=== PATIENT | female | born 1975 | race Caucasian/White ===

== ENCOUNTER 2019-03-16 09:09 | Outpatient (CLI) | payer OTHER, SELFPAY ==
--- NOTE | ~2019-03-16 | XR_ITS ---
XR_[id number]_CR DATE: 03/16/2019 10:01 INDICATION: Left neck pain, left arm numbness. No injury. TECHNIQUE: AP, open-mouth, lateral views COMPARISON: None FINDINGS: There is straightening of the cervical spine. C1 and C2 are normally aligned and the odontoid process is intact. No fracture or dislocation, locked facet or prevertebral soft tissue swelling is evident. The cervical interspaces are relatively well preserved. There is minimal posterior spurring at C4-5 a nd anteroinferior spurring at the C6 vertebral body. IMPRESSION: Straightening Mild degenerative change Reviewed, dictated and finalized at Location A. Reviewed, dictated and finalized at location B. STIGATOR UTILITY BILL COMPLAINTS
--- NOTE | ~2019-03-16 | MM_ITS ---
EXAMINATION: MM screening denzel BI w sandhya HISTORY: Screening mammogram TECHNIQUE: Craniocaudal and mediolateral oblique 3-D tomosynthesis images were obtained and synthetic 2-D images were generated. CAD analysis was submitted and interpreted. COMPARISON: None, baseline BREAST PARENCHYMAL COMPOSITION: There are scattered areas of fibroglandular density. FINDINGS: RIGHT BREAST: There is no evidence of suspicious mass, calcification, or architectural distortion to suggest malignancy. LEFT BREAST: There is possible architectural distortion in the posterior third of the outer breast be st appreciated 6.6 cm from the nipple on the craniocaudal view.. IMPRESSION: 1. Possible left breast architectural distortion. 2. Additional mammographic views and possible breast ultrasound are recommended to evaluate for malig rom and establish a baseline given that this is the first mammographic examination. BI-RADS Category 0: Incomplete: Needs additional imaging evaluation. Reviewed, dictated and finalized at location A. ER UP IMPRESSION: 1. Possible left breast architectural distortion. 2. Additional mammographic views and possible breast ultrasound are recommended to evaluate for malignancy and establish a baseline given that this is the fir st mammographic examination. BI-RADS Category 0: Incomplete: Needs additional imaging evaluation.
== END 2019-03-16 09:10 | disposition home or self-care (01) ==
PROVIDERS: PCP Family Medicine; Visit Provider Family Medicine
DX: Z12.31 Encounter for screening mammogram for malignant neoplasm of breast (principal); M54.12 Radiculopathy, cervical region; R92.8 Other abnormal and inconclusive findings on diagnostic imaging of breast; M50.30 Other cervical disc degeneration, unspecified cervical region
CPT/HCPCS: 72040; 77063; 77067

== ENCOUNTER 2019-04-13 11:19 | Outpatient (CLI) | payer OTHER, SELFPAY ==
--- NOTE | ~2019-04-13 | MMUS_ITS ---
EXAMINATION: MM diagnostic mammo unilat LT, US breast LT limited HISTORY: Follow-up left breast asymmetry TECHNIQUE: Additional 3-D tomosynthesis images of the left breast were performed and synthetic 2-D im ages were generated. CAD analysis was submitted and interpreted. High resolution left breast ultrasou nd was performed. COMPARISON: 03/16/2019 FINDINGS: MAMMOGRAPHIC FINDINGS: Breast composed of scattered areas of fibroglandular density. There are no suspicious masses, calcifi cations or architectural distortion of the left breast. ULTRASOUND: At 12:00, 5 cm from the nipple, there is an oval circumscribed hypoechoic mass with central echogenic ity measuring 5 x 4 x 2 mm. No internal vascularity or posterior shadowing. There are mildly prominen t ducts at the 4:00 position near the nipple. IMPRESSION: 1. Probable benign 5 mm oval hypoechoic mass of the left breast at 12:00, 5 cm from the nipple. 2. Recommend 6 month follow-up left breast ultrasound. BI-RADS category 3, probably benign findings. Reviewed, dictated and finalized at location A. EL TRAILER MECHANIC IMPRESSION: 1. Probable benign 5 mm oval hypoechoic mass of the left breast at 12:00, 5 cm from the nipple. 2. Recommend 6 month follow-up left breast ultrasound. BI-RADS category 3, probably benign findings.
== END 2019-04-13 11:20 | disposition home or self-care (01) ==
LOC: ANHIMG 11:21
PROVIDERS: PCP Family Medicine; Visit Provider Family Medicine
DX: R92.8 Other abnormal and inconclusive findings on diagnostic imaging of breast (principal)
CPT/HCPCS: 76642; 77065

== ENCOUNTER 2020-05-16 13:19 | Outpatient (CLI) | payer OTHER, SELFPAY ==
--- NOTE | ~2020-05-16 | MMUS_ITS ---
EXAMINATION: MM diagnostic denzel BI w sandhya, US breast LT limited HISTORY: Left breast follow-up ultrasound from 04/13/2019 limited left breast ultrasound examination. B ilateral screening. TECHNIQUE: Bilateral full field ML, MLO and craniocaudal and additional right spot ML and MLO 3-D luis carlos osynthesis images were performed and synthetic 2-D images were generated. CAD analysis was submitted and interpreted. Bilateral rotated lateral cc views. High resolution targeted left 12:00 follow-up ul trasound was performed. COMPARISON: 04/13/2019 diagnostic left mammogram and limited left breast ultrasound 03/16/2019 bilateral digital screening mammogram BREAST PARENCHYMAL COMPOSITION: The breasts are heterogeneously dense, which may obscure small masses . FINDINGS: MAMMOGRAPHIC FINDINGS: No reproducible mass or architectural distortion, malignant L., Skin thickening or retraction of eith er breast is evident. ULTRASOUND: There is no evidence of focal abnormal solid or cystic lesion in the vicinity of the prior abnormalit y at 12:00 5 cm from the nipple. IMPRESSION: 1. No mammographic evidence of malignancy 2. Routine annual mammographic screening is recommended. BI-RADS Category 1: Negative Reviewed, dictated and finalized at location A. IMPRESSION: 1. No mammographic evidence of malignancy 2. Routine annual mammographic screening is recommended. BI-RADS Category 1: Negative
== END 2020-05-16 13:20 | disposition home or self-care (01) ==
PROVIDERS: PCP Family Medicine; Visit Provider Family Medicine
DX: N63.20 Unspecified lump in the left breast, unspecified quadrant (principal)
CPT/HCPCS: 76642; 77062; 77066; G0279

== ENCOUNTER 2020-05-23 09:29 | Outpatient (CLI) | payer OTHER, SELFPAY ==
[2020-05-23 10:05] LABS: Basophils Percent Auto 0.5 % (0.2-1.2); Eosinophils Absolute Auto 0.1 K/mm3 (0-0.3); Eosinophils Percent Auto 1.5 % (0-4.4); Hematocrit 39.3 % (37.0-47.0); Hemoglobin 12.7 g/dL (12.0-15.0); Immature Granulocyte Absolute 0.04 K/mm3 (0.00-0.031); Immature Granulocyte Percent A 0.5 % (0-0.5); Lymphocytes Absolute Auto 2.07 K/mm3 (0.9-3.2); Mean Corpuscular HGB Conc 32.3 g/dl (32-36); Mean Corpuscular Hemoglobin 31.6 pg (26-34); Mean Corpuscular Volume 97.8 fl (80-100); Mean Platelet Volume 10.4 fl (7.4-10.4); Monocytes Absolute Auto 0.8 K/mm3 (0.1-0.6); Monocytes Percent Auto 9.6 % (2.6-8.5); Neutrophils Absolute Auto 5.2 K/mm3 (1.3-6.7); Neutrophils Percent Auto 62.9 % (45.5-73.1); Platelet Count Result 278 k/mm3 (150-375); Red Blood Count 4.02 M/mm3 (4.2-5.4); Red Cell Distribution Width 12.5 % (11.5-14.5); White Blood Count 8.3 K/mm3 (4.5-10.0)
[2020-05-23 10:19] LABS: Alanine Aminotransferase 16 U/L (4-35); Albumin Level 4.3 g/dL (3.5-5.1); Alkaline Phosphatase 42 U/L (38-126); Anion Gap 6 mmol/L (8-16); Aspartate Amino Transferase 23 U/L (14-36); Bilirubin,Total 0.4 mg/dL (0.2-1.3); Blood Urea Nitrogen 17 mg/dL (7-17); CRP < 0.5 mg/dL (<1.0); Calcium 9.1 mg/dL (8.4-10.2); Carbon Dioxide 27 mmol/L (22-30); Chloride 107 mmol/L (98-107); Estimated Glomerular Filt Rate 60; Glucose 83 mg/dL (65-105); Potassium 4.3 mmol/L (3.4-5.0); Sodium 140 mmol/L (137-145)
[2020-05-23 10:42] LABS: Erythrocyte Sedimentation Rate 11 mm/hr (0-20)
[2020-05-26 07:42] LABS: Red Blood Cell Folate 477 ng/mL RBC (>280)
[2020-05-29 09:58] LABS: Arsenic, Blood <3 mcg/L (<23); Lead, Blood <1 mcg/dL (<5); Mercury, Blood <4 mcg/L (<=10)
[2020-05-29 10:01] LABS: Collection Sample Blood
[2020-05-29 11:35] LABS: ANA Cascade Screen Positive (Negative)
[2020-05-29 13:35] LABS: Chromatin (Nucleosomal) Ab 1.5; RNP Antibody <1.0; Sm Antibody <1.0; Sm/RNP Antibody <1.0
== END 2020-05-23 09:30 | disposition home or self-care (01) ==
PROVIDERS: PCP Family Medicine; Visit Provider Physician Assistant
DX: R19.7 Diarrhea, unspecified (principal); R43.2 Parageusia
CPT/HCPCS: 36415; 80053; 82175; 82607; 82747; 83655; 83825; 84443; 85025; 85652; 86038; 86140; 87045; 87046; 87177; 87209; 87269; 87427; 87493; 89055

== ENCOUNTER 2020-12-19 17:00 | Outpatient (CLI) | payer OTHER, SELFPAY ==
--- NOTE | ~2020-12-19 | MR_ITS ---
EXAMINATION: MR cervical spine wo con DATE: 12/19/2020 17:43 INDICATION: Cervical radiculopathy. TECHNIQUE: Magnetic resonance imaging (MRI) of the cervical spine was performed without intravenous c ontrast. Sequences included sagittal T2-weighted FSE, sagittal T2-weighted FS FSE, sagittal T1-weight ed FSE, axial MERGE, and axial T2-weighted FSE. COMPARISON: Cervical spine radiographs 03/16/2019 FINDINGS: There is 3 degrees dextrocurvature of cervical spine. There is mild kyphosis of cervical sp ine. Vertebral body heights are normal. There is mildly decreased disc height at C5-C6. The spinal co rd signal intensity is normal. The following disc levels are specifically discussed: C2-C3: The disc does not extend beyond the endplate margin. There is no uncovertebral joint osteoarth ritis. There is no facet joint osteoarthritis. There is no neural foraminal stenosis. There is no bronson tral canal stenosis. C3-C4: The disc does not extend beyond the endplate margin. There is mild right uncovertebral joint o steoarthritis. There is no facet joint osteoarthritis. There is no neural foraminal stenosis. There i s no central canal stenosis. C4-C5: There is a right central and right foraminal zone extrusion. There is mild bilateral uncoverte bral joint osteoarthritis. There is no facet joint osteoarthritis. There is moderate right and mild l eft neural foraminal stenosis. There is mild central canal stenosis. C5-C6: There is a central extrusion. There is mild right and severe left uncovertebral joint osteoart hritis. There is mild left facet joint osteoarthritis. There is mild right and severe left neural for aminal stenosis. There is moderate central canal stenosis with ventral and dorsal indentation of the spinal cord. C6-C7: The disc is bulging. There is mild bilateral uncovertebral joint osteoarthritis. There is mode rate left facet joint osteoarthritis. There is no neural foraminal stenosis. There is mild central ca nal stenosis. C7-T1: The disc does not extend beyond the endplate margin. There is no uncovertebral joint osteoarth ritis. There is mild bilateral facet joint osteoarthritis. There is mild left neural foraminal stenos is. There is no central canal stenosis. IMPRESSION: 1. Moderate cervical spondylosis. Reviewed, dictated and finalized at location A. ING MACHINE SET UP OPERATOR
== END 2020-12-19 17:01 | disposition home or self-care (01) ==
LOC: ANHIMG 17:04
PROVIDERS: PCP Family Medicine; Visit Provider Physician Assistant Medical
DX: M54.12 Radiculopathy, cervical region (principal); M47.812 Spondylosis without myelopathy or radiculopathy, cervical region
CPT/HCPCS: 72141

== ENCOUNTER 2021-04-14 12:39 | Outpatient (CLI) | payer OTHER, SELFPAY ==
--- NOTE | ~2021-04-14 | US_ITS ---
EXAMINATION: US pelvic complete EXAM DATE: 04/14/2021 13:04 INDICATION: N85.2 - Hypertrophy of uterus. TECHNIQUE: Pelvic transabdominal sonogram was performed. There are multiple grayscale and Doppler im ages available for interpretation. There is no prior study for comparison. FINDINGS: Uterus measures 8.5 x 4.4 x 5.3 cm, and is morphologically normal. Endometrial stripe shannan sures 11 mm, within normal limits. There is no free pelvic fluid. Right adnexa: The ovary measures 3.4 x 2.3 x 2.1 cm and is morphologically normal. Ovarian vascular f low confirmed. Left adnexa: The ovary measures 2.6 x 2.3 x 2.8 cm and is morphologically normal. Ovarian vascular fl ow confirmed. IMPRESSION: 1. Unremarkable pelvic ultrasound exam. Reviewed, dictated and finalized at location A. TROCARDIOGRAPH TECHNICIAN
== END 2021-04-14 12:40 | disposition home or self-care (01) ==
LOC: ANHIMG 12:44
PROVIDERS: PCP Family Medicine; Visit Provider Family Medicine
DX: N85.2 Hypertrophy of uterus (principal)
CPT/HCPCS: 76856

== ENCOUNTER 2021-05-01 15:52 | Outpatient (CLI) | payer OTHER, SELFPAY ==
--- NOTE | ~2021-05-01 | MM_ITS ---
EXAMINATION: MM screening denzel BI w sandhya HISTORY: Screening mammogram TECHNIQUE: Craniocaudal and mediolateral oblique 3-D tomosynthesis images were obtained and synthetic 2-D images were generated. CAD analysis was submitted and interpreted. COMPARISON: diagnostic bilateral mammogram and limited left breast ultrasound 04/13/1999 1220 diagnostic left mammogram and limited left breast ultrasound 03/16/2019 bilateral screening mammogram BREAST PARENCHYMAL COMPOSITION: There are scattered areas of fibroglandular density. FINDINGS: There is no evidence of suspicious mass, calcification, or architectural distortion to sugg est malignancy in either breast. There has been no suspicious interval change. IMPRESSION: 1. No mammographic evidence of malignancy. 2. Recommend routine screening mammography in one year. BI-RADS Category 1: Negative Reviewed, dictated and finalized at location A.
== END 2021-05-01 15:53 | disposition home or self-care (01) ==
PROVIDERS: PCP Family Medicine; Visit Provider Family Medicine
DX: Z12.31 Encounter for screening mammogram for malignant neoplasm of breast (principal)
CPT/HCPCS: 77063; 77067

== ENCOUNTER 2021-06-16 08:28 | Outpatient (CLI) | payer OTHER, SELFPAY ==
--- NOTE | ~2021-06-16 | US_ITS ---
EXAMINATION: US pelvic complete w TV DATE: 06/16/2021 09:43 INDICATION: Pelvic and perineal pain TECHNIQUE: Multiple transabdominal and endovaginal sonographic images of the pelvis were obtained. COMPARISON: 04/14/2021 FINDINGS: The uterus measures 8.8 x 6.7 x 5.3 cm. The endometrial complex measures 3 mm. Nabothian cy sts are noted in the cervix. The right ovary measures 4.3 x 3.9 x 3.8 cm and contains a 3.9 cm cyst. The left ovary measures 2.2 x 1.7 x 1.3 cm. There is normal vascular flow in the ovaries. There is no free fluid in the pelvis. IMPRESSION: 1. No sonographic correlate for the patient's symptoms. Reviewed, dictated and finalized at location A.
== END 2021-06-16 08:29 | disposition home or self-care (01) ==
LOC: ANHIMG 08:32
PROVIDERS: PCP Family Medicine; Visit Provider Family Medicine
DX: R10.2 Pelvic and perineal pain (principal)
CPT/HCPCS: 76830; 76856

== ENCOUNTER 2021-06-20 01:24 | Day surgery (SDC) | payer OTHER, SELFPAY ==
[2021-06-05 13:32] VITALS: BMI 32.8
--- NOTE | 2021-06-19 14:16 | PM.HPGS ---
History of Present Illness History of Present Illness Consent: Risks, benefits, and alternatives have been discussed and questions answered. Patient agrees to proceed with procedure. Chief complaint: GERD, Neoplasm screening Narrative: Mukul Lynch is a 45 year old female with hx of GERD, gastric sleeve (2016), and tubal ligation is referred by Dr. Romero for evaluation of GERD. She reports 22 year hx of reflux symptom that she treated off and on with tums or OTC PPI as needed but for past few months symptoms are progressively getting worse. Now with daily reflux and burning sensation in midchest and feels liquid comes up esophagus causes her to cough. Reflux is worse on an empty stomach and at night. Rare incident of vomiting during the night. for the last month she has taken OTC omeprazole with some improvement in symptoms. Prior to that she took it 2-3 days a week. She takes ibuprofen 1-2 times a month for neck pain. she is due for colon cancer screening. Review of Systems Review of Systems: All systems reviewed & are unremarkable except as noted in HPI and below PMFSH Past Medical History Medical History Encounter for screening colonoscopy Surgical History Surgical History H/O tubal ligation Status post panniculectomy Family History Family History Mother Hypertension Social History Social History Smoking status: Never smoker Second hand tobacco smoke exposure: No Alcohol intake: current Alcohol use details: drinks on the weekends Substance use: never Substance use type: does not use Living arrangements: with family Gender identity (if verbalized by the patient): Female Spiritual care concerns: No Agree to blood products: Yes Meds Home Medications and Allergies Home Medications Medication Instructions Recorded Confirmed Type phentermine 37.5 mg tablet 18.75 mg PO DAILY #30 tablet 01/20/21 06/05/21 Rx omeprazole 40 mg capsule,delayed 20 mg PO DAILY cap 05/15/21 06/05/21 History release medroxyprogesterone 10 mg tablet 10 mg PO DAILY #30 tablet 06/02/21 06/05/21 Rx topiramate 25 mg tablet See Rx Instructions .ROUTE 06/17/21 Rx .COMPLEX #60 tablet Allergies Allergy/AdvReac Type Severity Reaction Status Date / Time No Known Allergies Allergy Verified 06/20/21 08:14 Exam Const: General: alert Orientation/consciousness: patient oriented x3 Resp: Auscultation: clear to auscultation bilaterally Cardio: Rhythm: regular rhythm GI: GI Palp: Yes Soft to palpation and No Tenderness to palpation present (GI) Neuro: General: patient oriented x3 Assessment and Plan Assessment and plan (1) GERD (gastroesophageal reflux disease): Code(s): K21.9 - Gastro-esophageal reflux disease without esophagitis Status: Acute Assessment and Plan: EGD with possible biopsy or dilatation or cautery. (2) Encounter for screening colonoscopy: Code(s): Z12.11 - Encounter for screening for malignant neoplasm of colon Status: Acute Assessment and Plan: Colonoscopy with possible biopsy or polypectomy or cautery or injection of substances.
[2021-06-20 08:14] VITALS: BP 124/85; PULSE 72; RESP 16; TEMP 36.2; O2SAT 100
[2021-06-20 08:16] VITALS: BMI 32.5
[2021-06-20] MEDS: LACTATED RINGERS 1,000 ML 150 ML IV CONT (08:23)
--- NOTE | 2021-06-20 08:33 | P.PNAN_ITS ---
Anes - Initial Pre Proc Eval Procedure: Operation Date: 06/20/21 09:15 Proposed Procedures p Esophagogastroduodenoscopy & Screening Colonoscopy - Pasha Sal MD Date/Time: 06/20/21 08:33 Surgeon: Pasha Sal MD Pre Op Diagnosis: GERD, Neoplasm screening Patient Data Age: 45 Gender: F Height: 1.6 m Weight: 83.5 kg Last Vital Signs Temp 36.2 C L 06/20/21 08:14 Pulse 72 06/20/21 08:14 Resp 16 06/20/21 08:14 BP 124/85 06/20/21 08:14 Pulse Ox 100 06/20/21 08:14 Allergies Allergy/AdvReac Type Severity Reaction Status Date / Time No Known Allergies Allergy Verified 06/20/21 08:14 Home Medications Medication Instructions Recorded Confirmed Type phentermine 37.5 mg tablet 18.75 mg PO DAILY #30 tablet 01/20/21 06/05/21 Rx omeprazole 40 mg capsule,delayed 20 mg PO DAILY cap 05/15/21 06/05/21 History release medroxyprogesterone 10 mg tablet 10 mg PO DAILY #30 tablet 06/02/21 06/05/21 Rx topiramate 25 mg tablet See Rx Instructions .ROUTE 06/17/21 Rx .COMPLEX #60 tablet Patient hx anesthesia problems: none Family hx anesthesia problems: none Results Review: All pre-operative results and documents have been reviewed as part of the pre-operative evaluation. [facility] Past Medical History Medical History Encounter for screening colonoscopy Surgical History Surgical History H/O tubal ligation Status post panniculectomy Family History Family History Mother Hypertension Social History Social History Smoking status: Never smoker Second hand tobacco smoke exposure: No Alcohol intake: current Alcohol use details: drinks on the weekends Substance use: never Substance use type: does not use Living arrangements: with family Gender identity (if verbalized by the patient): Female Spiritual care concerns: No Agree to blood products: Yes Anes - Eval Final PreProcedure Day of Procedure 06/20/21 08:33 Patient weight: obese Heart: regular rate and rhythm Lungs: clear to auscultation Airway: Mallampati scale class II Neurological: alert and oriented Last oral intake: >/= 8 hours ASA classification: II Emergent: no Anesthetic plan: proceed Anesthesia type and monitoring: general GIVS and standard monitoring Results Review: All pre-operative results and documents have been reviewed as part of the pre-operative evaluation. Informed Consent: The patient's anesthetic plan and its attendant risks and benefits were discussed with the patient/family/POA. Questions were solicited and answers provided to the satisfaction of the patient/family/POA.
--- NOTE | 2021-06-20 09:21 | SUR.OPER ---
EGD: [id number] COLON: [id number]
[2021-06-20 09:51] VITALS: BP 135/77; PULSE 72; RESP 16; O2SAT 99
[2021-06-20 10:11] VITALS: BP 133/88; PULSE 64; RESP 16; O2SAT 100
== END 2021-06-20 10:17 | disposition home or self-care (01) ==
PROVIDERS: PCP Family Medicine; Visit Provider Internal Medicine Gastroenterology
PROC: 0DJ08ZZ Inspection of Upper Intestinal Tract, Via Natural or Artificial Opening Endoscopic (ICD-10-PCS; CPT 43235; principal; 2021-06-20 09:15)
DX: Z12.11 Encounter for screening for malignant neoplasm of colon (principal); K21.00 Gastro-esophageal reflux disease with esophagitis, without bleeding; K44.9 Diaphragmatic hernia without obstruction or gangrene; Z98.84 Bariatric surgery status; E66.9 Obesity, unspecified; Z68.32 Body mass index [BMI] 32.0-32.9, adult
CPT/HCPCS: 43239; 45378; 87081; 88305; J2704; J7120

== ENCOUNTER 2022-01-11 10:21 | Emergency (ER) | payer OTHER, SELFPAY ==
--- NOTE | 2022-01-11 10:27 | ED.URI ---
HPI - URI/Sore Throat General Chief Complaint: Upper Respiratory Infection Stated Complaint: upper respiratory sore throat Time Seen by Provider: 01/11/22 10:27 Source: patient and RN notes reviewed History of Present Illness HPI Narrative: patient is a 46-year-old female who presents to the Urgent Care with complaints of sore throat, swollen glands and drainage. Patient states that it started approximately 2 and half days ago. Denies any fevers. States that she had an exposure to someone's mother who had influenza. Patient has been taking ibuprofen. No other acute complaints. No acute distress noted. Patient aware of the plan of care. Some parts of this dictation were generated by voice recognition software and may contain typographical and/or grammatical inaccuracies. Related Data Allergies Allergy/AdvReac Type Severity Reaction Status Date / Time No Known Allergies Allergy Verified 06/20/21 08:14 Review of Systems Review of Systems: CONSTITUTIONAL: Denies fever, chills, or sweats. EYES: Denies visual changes, redness, or discharge. ENT: Reports of drainage, sore throat and swollen glands CARDIOVASCULAR: Denies chest pain, palpitations, or edema. RESPIRATORY: Denies cough or dyspnea. GASTROINTESTINAL: Denies abdominal pain, nausea, vomiting, or diarrhea. GENITOURINARY: Denies dysuria or hematuria. SKIN: Denies rash or itching. MUSCULOSKELETAL: Denies back pain, joint pain, or myalgia. NEUROLOGIC: Denies headache, numbness, or weakness. All other systems reviewed are negative, except as documented in HPI. [facility] Past Medical History Medical History Encounter for screening colonoscopy Surgical History Surgical History H/O tubal ligation Status post panniculectomy Family History Family History Mother Hypertension Social History Social History Smoking status: Never smoker Second hand tobacco smoke exposure: No Alcohol intake: current Alcohol use details: drinks on the weekends Substance use: never Substance use type: does not use Gender identity (if verbalized by the patient): Female Spiritual care concerns: No Agree to blood products: Yes Comments At the time of my signature, I reviewed and agree with the nursing past medical, surgical, social, and family history. There is no relevant family history pertinent to the patient complaint. Exam Narrative: GENERAL: This is a well-nourished, well-developed patient, in no apparent distress. HEAD: normocephalic, atraumatic. EYES: PERRL. Sclera clear/white. Vision is grossly intact. EARS: External ears normal, auditory canals clear and without drainage, TMs normal without perforation. Hearing grossly intact. NOSE: External nose normal with no obvious nasal discharge, nares without redness, no rhinorrhea. THROAT: Mucous membranes moist, mild erythema to posterior oropharynx with moderate postnasal drainage. no tonsillar edema. NECK: Neck supple, non-tender without lymphadenopathy CARDIOVASCULAR: Regular rate and rhythm without murmurs, gallops, or rubs. RESPIRATORY: Clear to auscultation. Breath sounds equal bilaterally. No wheezes, rales, or rhonchi. SKIN: warm, intact with no suspicious lesions or rash, good texture and turgor. NEURO: awake, alert, and oriented to person, place and time. There were no obvious focal neurologic abnormalities. EXTREMITIES: No clubbing, cyanosis, or edema. Course Course Level of Care: Express Care Visit Vital Signs Vital signs: Vital Signs Temperature 97.8 F 01/11/22 10:33 Pulse Rate 78 01/11/22 10:33 Respiratory Rate 16 01/11/22 10:33 Blood Pressure 131/80 01/11/22 10:33 Pulse Oximetry 100 01/11/22 10:33 Oxygen Delivery Room Air 01/11/22 10:33 Temperature 97.8 F
[2022-01-11 10:33] VITALS: BP 131/80; PULSE 78; RESP 16; TEMP 36.6; O2SAT 100
== END 2022-01-11 11:11 | disposition home or self-care (01) ==
PROVIDERS: Emergency Provider Nurse Practitioner Family; PCP Family Medicine
DX: J02.9 Acute pharyngitis, unspecified (principal)
CPT/HCPCS: 87081; 87804; 99213; G0463

== ENCOUNTER 2022-05-07 17:02 | Emergency (ER) | payer OTHER, SELFPAY ==
--- NOTE | 2022-05-07 17:06 | ED.URI ---
HPI - URI/Sore Throat General Chief Complaint: Upper Respiratory Infection Stated Complaint: sinus infection Time Seen by Provider: 05/07/22 17:06 Source: patient and RN notes reviewed History of Present Illness HPI Narrative: Patient is a 46-year-old female presents to urgent care with complaints of a possible ?sinus infection?. Patient states she has had clear drainage for weeks without any facial congestion, pressure, fevers, sore throat. Patient states that her nasal drainage ?has an odor? and when she used nasal spray today it ?burned? and the campus receptionist at her doctor's office told her it was ?not normal?. Patient has no signs or symptoms of a bacterial sinus infection. Patient has not done anything [id number] with the exception of a 1 time saline nasal spray this afternoon. No other acute complaints. No acute distress noted. Patient aware of the plan of care. Some parts of this dictation were generated by voice recognition software and may contain typographical and/or grammatical inaccuracies. Related Data Home Medications Medication Instructions Recorded Confirmed mecobalamin (vitamin B12) 1,000 1,000 mcg PO DAILY 04/09/22 04/09/22 mcg chewable tablet Allergies Allergy/AdvReac Type Severity Reaction Status Date / Time No Known Allergies Allergy Verified 04/09/22 09:13 Review of Systems Review of Systems: CONSTITUTIONAL: Denies fever, chills, or sweats. EYES: Denies visual changes, redness, or discharge. ENT: Reports of clear nasal drainage without otalgia, sore throat, congestion CARDIOVASCULAR: Denies chest pain, palpitations, or edema. RESPIRATORY: Denies cough or dyspnea. GASTROINTESTINAL: Denies abdominal pain, nausea, vomiting, or diarrhea. GENITOURINARY: Denies dysuria or hematuria. SKIN: Denies rash or itching. MUSCULOSKELETAL: Denies back pain, joint pain, or myalgia. NEUROLOGIC: Denies headache, numbness, or weakness. All other systems reviewed are negative, except as documented in HPI. [facility] Past Medical History Medical History Encounter for screening colonoscopy Surgical History Surgical History H/O tubal ligation Status post panniculectomy Family History Family History Mother Hypertension Social History Social History (Updated 04/09/22 @ 09:16 by Elvis Blum MA) Smoking status: Never smoker Second hand tobacco smoke exposure: No Alcohol intake: current Alcohol use details: drinks on the weekends Substance use: never Substance use type: does not use Lack of Transportation: No Lack of Food: Never True Current Housing: I Have Housing Concerned About Future Housing: No Difficulty Paying Gas/Electric Bills: No Difficulty Paying for Meds: No Currently Unemployed: No Education: High School Diploma/GED Difficulty w/ Childcare or Family Care: No Living arrangements: with family Occupation/Education: occupation Gender identity (if verbalized by the patient): Female Spiritual care concerns: No Agree to blood products: Yes Comments At the time of my signature, I reviewed and agree with the nursing past medical, surgical, social, and family history. There is no relevant family history pertinent to the patient complaint. Exam Narrative: GENERAL: This is a well-nourished, well-developed patient, in no apparent distress. HEAD: normocephalic, atraumatic. EYES: PERRL. Sclera clear/white. Vision is grossly intact. EARS: External ears normal, auditory canals clear and without drainage, TMs normal without perforation. Hearing grossly intact. NOSE: External nose normal with no obvious nasal discharge, mild bilateral erythemic nasal tuberosities without occlusion. Clear rhinorrhea THROAT: Mucous membranes moist, posterior pharynx clear. NECK: Neck supple RESPIRATORY: Jacky
[2022-05-07 17:08] VITALS: BP 138/85; PULSE 82; RESP 20; TEMP 37.1; O2SAT 100
== END 2022-05-07 17:41 | disposition home or self-care (01) ==
PROVIDERS: Emergency Provider Nurse Practitioner Family; PCP Family Medicine
DX: J30.9 Allergic rhinitis, unspecified (principal)
CPT/HCPCS: 99213; G0463

== ENCOUNTER 2022-10-01 07:25 | Outpatient (CLI) | payer OTHER, SELFPAY ==
--- NOTE | ~2022-10-01 | MM_ITS ---
EXAMINATION: MM screening denzel BI w sandhya HISTORY: Screening mammogram TECHNIQUE: Craniocaudal and mediolateral oblique 3-D tomosynthesis images were obtained and synthetic 2-D images were generated. CAD analysis was submitted and interpreted. COMPARISON: 04/27/2021 bilateral screening mammogram 05/16/2020 bilateral diagnostic mammogram and limited left breast ultrasound BREAST PARENCHYMAL COMPOSITION: There are scattered areas of fibroglandular density. FINDINGS: There is no evidence of suspicious mass, calcification, or architectural distortion to sugg est malignancy in either breast. There has been no suspicious interval change. IMPRESSION: 1. No mammographic evidence of malignancy. 2. Recommend routine screening mammography in one year. BI-RADS Category 1: Negative Reviewed, dictated and finalized at location A.
== END 2022-10-01 07:26 | disposition home or self-care (01) ==
LOC: ANHIMG 07:27
PROVIDERS: PCP Family Medicine; Visit Provider Physician Assistant
DX: Z12.31 Encounter for screening mammogram for malignant neoplasm of breast (principal)
CPT/HCPCS: 77063; 77067

== ENCOUNTER 2023-11-22 13:15 | Emergency (ER) | payer OTHER, SELFPAY ==
[2023-11-22 13:25] VITALS: BP 119/82; PULSE 75; RESP 18; TEMP 36.6; O2SAT 100
--- NOTE | 2023-11-22 13:26 | ED_ITS ---
HPI - URI/Sore Throat General Chief Complaint: Upper Respiratory Infection Stated Complaint: upper respiratory Time Seen by Provider: 11/22/23 13:38 Source: patient, RN notes reviewed and old records reviewed Mode of arrival: ambulatory Limitations: no limitations History of Present Illness HPI Narrative: 48 year old female who presents to [facility] care with 5 day history of acute cough,nasal congestion and drainage and has had some hoarseness for the past 2 days. Patient reports that her son had similar symptoms last week. Patient reports that she has taken 2 home COVID tests which were negative, Patient repo rts no history of asthma, denies any feels of shortness of breath, states cough has been productive of yellow phlegm in the mornings, denies any fevers, chills or body aches. MD elicited complaint: cough, rhinorrhea, nasal congestion and other (hoarseness) Onset (ago): day(s) (5) Severity: moderate Able to tolerate fluids by mouth: Yes Treatments prior to arrival: other (DayQuil and Afrin nasal spray) Related Data Home Medications Medication Instructions Recorded Confirmed mecobalamin (vitamin B12) 1,000 1,000 mcg PO DAILY 04/09/22 11/22/23 mcg chewable tablet Saccharomyces boulardii 250 mg 250 mg PO BID 01/05/23 11/22/23 capsule (Daily Probiotic (S. boulardii)) multivitamin (Daily Multi-Vitamin 1 tablet PO DAILY 01/05/23 11/22/23 tablet) omeprazole 40 mg capsule,delayed 40 mg PO DAILY 11/22/23 11/22/23 release Allergies Allergy/AdvReac Type Severity Reaction Status Date / Time No Known Allergies Allergy Verified 11/22/23 13:33 Review of Systems Review of Systems: CONSTITUTIONAL: Denies malaise, chills, sweats, or fever. EYES: Denies visual changes, redness, or discharge. ENT: Reports rhinorrhea, congestion, sinus pain,no otalgia and no sore throat. CARDIOVASCULAR: Denies chest pain, palpitations, or edema. RESPIRATORY: Reports productive cough.? Denies dyspnea. GASTROINTESTINAL: Denies abdominal pain, nausea, vomiting, diarrhea SKIN: Denies rash or itching. MUSCULOSKELETAL: Denies myalgia. NEUROLOGIC: Denies headache. All systems reviewed & are unremarkable except as noted in HPI and below PMFSH Past Medical History Medical History Encounter for screening colonoscopy GERD (gastroesophageal reflux disease) Surgical History Surgical History H/O gastric sleeve 2015 H/O tubal ligation Status post panniculectomy Family History Family History Mother Hypertension Social History Social History Smoking status: Never smoker Second hand tobacco smoke exposure: No Alcohol intake: current Alcohol use details: drinks on the weekends Substance use: never Substance use type: does not use Lack of Transportation: No Lack of Food: Never True Current Housing: I Have Housing Concerned About Future Housing: No Difficulty Paying Gas/Electric Bills: No Difficulty Paying for Meds: No Currently Unemployed: No Education: High School Diploma/GED Difficulty w/ Childcare or Family Care: No Living arrangements: with family Occupation/Education: occupation Gender identity (if verbalized by the patient): Female Spiritual care concerns: No Agree to blood products: Yes Comments At time of signature, agree with nursing past medical, surgical, social and family history. There is no relevant family history pertinent to the presenting complaint Exam Narrative: GENERAL: Well-appearing, well-nourished, and in no acute distress. HEAD: Normocephalic EYES: PERRLA, conjunctivae clear ENT: Nares clear, turbinates edematous and erythematous, clear discharge. Mucous membranes moist. TM pearly petit with dull light reflex bilaterally; no tragal tenderness. Oropharynx erythematous without lesions. Tonsils not enlarged and without exudate, no drooling, positive hoarseness, no trismus, uvula midline.post nasal drainage NECK: Supple. No lymphadenopathy CHEST: Clear to auscultation, breath sounds equal. No wheezing, rhonchi, rales, or stridor. No respiratory distress, speaks in full sentences.acute cough,SAO2 100% on room air HEART: Regular rate and rhythm. No murmur heard. SKIN: Warm, dry, no rash. NEURO: Alert and oriented x3. PSYCH: Normal mood and affect Course Course Emergency Course: Patient is aware of diagnosis, understands and agrees to treatment plan.? Anticipatory guidance given.? Patient agrees to follow-up as directed and is aware of reasons to seek care at the emergency department. Portions of this record may have been created with voice recognition software Level of Care: Express Care Visit Vital Signs Vital signs: Vital Signs Temperature 36.6 C 11/22/23 13:25 Pulse Rate 75 11/22/23 13:25 Respiratory Rate 18 11/22/23 13:25 Blood Pressure 119/82 11/22/23 13:25 Pulse Oximetry 100 11/22/23 13:25 Oxygen Delivery Room Air 11/22/23 13:25 Temperature 36.6 C 11/22/23 13:25 Pulse Rate 75 11/22/23 13:25 Respiratory Rate 18 11/22/23 13:25 Blood Pressure 119/82 11/22/23 13:25 Pulse Oximetry 100 11/22/23 13:25 Oxygen Delivery Room Air 11/22/23 13:25 Reviewed MDM - URI/Sore Throat MDM Narrative Medical decision making narrative: Differential diagnosis considered: Fink virus, strep pharyngitis, allergic rhinitis, upper respiratory tract infection, sinusitis, rhinosinusitis, nasopharyngitis. viral pharyngitis, otitis media, otitis externa, pneumonia, bronchitis, viral cough syndrome, viral syndrome, and influenza.? Exam findings show no acute concerns or changes; patient is non-toxic appearing and is in no distress.? Patient is appropriate for outpatient treatment and follow-up. Differential Diagnosis Differential diagnosis: Likely upper respiratory infection, sinusitis, viral infection and other (cough and congestion) Medical Records Attestation: I reviewed the patient's medical records. Lab Data Attestation: I reviewed the patient's lab results. Critical Care Time Critical Care Time Critical Care Time: No Discharge Plan Discharge Clinical Impression: Nasal sinus congestion, Acute cough Patient Disposition: Home, Self-Care Condition: Stable Instructions: Rhinosinusitis (ED), Acute Cough (ED) Additional Instructions: Increase fluids especially juices and water [id number] cough and cold medicine of your choice for your symptoms Zyrtec Claritin or Rufina daily may include plain Sudafed 1 tab in a.m. and 1 tab in early p.m. Cough tablets as directed for cough--do not bite, chew or suck on--swallow whole Steroids as directed--take with food heat to the face 20-30 minutes 4-6 times a day for pain Salt water gargles, throat lozenges or throat sprays as desired If your symptoms persist, change or worsen significantly before you can contact your personal physician then please, without delay, go to the emergency department for further evaluation. Follow-up with PCP in 7-10 days or sooner if needed Prescriptions: New prednisone 20 mg tablet 20 mg PO BID Qty: 10 0RF Rx Instructions: Take with food early a.m. and early p.m. benzonatate 200 mg capsule 200 mg PO TID PRN (Reason: cough) Qty: 20 0RF No Action omeprazole 40 mg capsule,delayed release(DR/EC) 40 mg PO DAILY mecobalamin (vitamin B12) 1,000 mcg tablet,chewable 1,000 mcg PO DAILY multivitamin [Daily Multi-Vitamin] Tablet 1 tablet PO DAILY Saccharomyces boulardii [Daily Probiotic (S. boulardii)] 250 mg capsule 250 mg PO BID Follow-up/Referrals: PHYSICIAN,REDUCTION FURNACE OPERATOR HELPER [Primary Care Provider] - Time of Disposition: 13:58 Quality Tish Coma Scale Eyes: Open Verbal: Oriented and Alert Motor: Follows Commands [place] Coma Total Score: 15
== END 2023-11-22 14:00 | disposition home or self-care (01) ==
PROVIDERS: Emergency Provider Registered Nurse
DX: R09.81 Nasal congestion (principal); R05.1 Acute cough; K21.9 Gastro-esophageal reflux disease without esophagitis; Z98.84 Bariatric surgery status
CPT/HCPCS: 99213; G0463